=== PATIENT | female | born 1995 | race Caucasian/White ===

== ENCOUNTER 2020-10-24 11:17 | Outpatient (CLI) | payer BC, SELFPAY ==
[2020-10-24 12:17] LABS: SARS-CoV-2 Ag Positive (Negative)
== END 2020-10-24 11:18 | disposition home or self-care (01) ==
LOC: CHSLAB 11:20
PROVIDERS: PCP Family Medicine; Visit Provider Family Medicine
DX: U07.1 COVID-19 (principal)
CPT/HCPCS: 87426

== ENCOUNTER 2021-04-13 11:21 | Outpatient (CLI) | payer BC, MEDICAID, SELFPAY ==
[2021-04-13 11:38] LABS: Hematocrit 40.8 % (35.0-49.0); Hemoglobin 13.7 g/dL (12.0-15.0); Mean Corpuscular HGB Conc 33.6 g/dL (32.0-36.0); Mean Corpuscular Hemoglobin 28.8 pg (27.0-31.0); Mean Corpuscular Volume 85.9 fL (78.0-102.0); Mean Platelet Volume 9.2 fl (9.2-11.8); Platelet Count Result 366 K/mm3 (150-420); Red Blood Count 4.75 M/mm3 (4.20-5.40); Red Cell Distribution Width 13.1 % (11.6-14.4); White Blood Count 9.2 K/mm3 (4.8-10.8)
[2021-04-13 13:10] LABS: Thyroid Stimulating Hormone 1.61 uIU/mL (0.36-3.74)
[2021-04-16 09:58] LABS: FSH 5.7 mIU/mL (***)
== END 2021-04-13 11:22 | disposition home or self-care (01) ==
PROVIDERS: PCP Physician Assistant
DX: N97.9 Female infertility, unspecified (principal)
CPT/HCPCS: 36415; 83001; 83002; 84146; 84443; 85027

== ENCOUNTER 2021-06-20 09:18 | Emergency (ER) | payer BC, MEDICAID, SELFPAY ==
--- NOTE | ~2021-06-20 | XR_ITS ---
EXAMINATION: XR chest 2V DATE: 06/20/2021 10:55 INDICATION: Cough and chest tightness TECHNIQUE: PA and lateral views of the chest were obtained. COMPARISON: Chest radiograph dated 10/05/2019 FINDINGS: The lungs remain clear with no focal airspace opacities, pulmonary edema, pleural effusion or pneumot horax. The cardiomediastinal silhouette is normal. Likely developmental pseudoarthrosis between the a nterolateral right first and second ribs. Visualized bones and soft tissues are otherwise unremarkabl e. IMPRESSION: 1. Clear lungs. No acute cardiopulmonary disease. Reviewed, dictated and finalized at location A.
[2021-06-20 10:18] VITALS: BP 119/81; PULSE 90; RESP 16; TEMP 36.3; O2SAT 100
--- NOTE | 2021-06-20 10:47 | ED.URI ---
HPI - URI/Sore Throat General Chief Complaint: Upper Respiratory Infection Stated Complaint: tightness in chest Source: patient and RN notes reviewed Mode of arrival: ambulatory Limitations: no limitations History of Present Illness HPI Narrative: patient states that she had COVID 8 months ago. she had significant illness for approximately 2 months. She says that she has had cough ever since. For the last month she has been coughing up yellow phlegm. Today she came into the emergency room because she says that she is coughing so hard she Vomited. She denies any other symptoms. She has not been vaccinated for COVID. MD elicited complaint: cough Onset (ago): month(s) (1) Consistency: constant Severity: moderate Description of mucous: yellow Able to tolerate fluids by mouth: Yes Exacerbating factors: nothing Relieving factors: nothing Associated symptoms: vomiting (post tussive) Treatments prior to arrival: none Related Data Home Medications Medication Instructions Recorded Confirmed citalopram 20 mg PO DAILY 09/29/19 06/20/21 methylphenidate HCl 36 mg PO DAILY 09/29/19 06/20/21 Allergies Allergy/AdvReac Type Severity Reaction Status Date / Time No Known Allergies Allergy Verified 09/29/19 11:38 Review of Systems Review of Systems: All systems reviewed & are unremarkable except as noted in HPI and below Constitutional: Constitutional: Denies chills and Denies fever(s) ENT: Denies sore throat Cardiovascular: Cardiovascular: Denies chest pain PMFSH Past Medical History Medical History (Updated 06/20/21 @ 11:59 by Nicanor Kendrick MD) ADHD Bipolar 1 disorder Hypertension Surgical History Surgical History (Updated 06/20/21 @ 10:53 by Nicanor Kendrick MD) deliv NOS-unsp Social History Social History Smoking status: Current every day smoker Exam Const: General: healthy appearing, no acute distress and alert Nutritional Appearance: obese morbidly obese Orientation/consciousness: patient oriented x3 Other: female nurse in room during examination. HENMT: Head: normal to inspection Ears: external ears normal Eyes: Conjunctivae: conjunctivae normal Pupils: Equal, round and reactive pupils present EOM: EOMs intact bilaterally Resp: Effort & Inspection: normal respiratory effort Auscultation: clear to auscultation bilaterally, no rales and no rhonchi Cardio: Rate: regular rate Rhythm: regular rhythm GI: GI Palp: Yes Soft to palpation and No Tenderness to palpation present (GI) Auscultation: normal bowel sounds Back/Spine/Pelvis: Cervical Spine: cervical ROM normal Thoracic/Lumbar Spine: thoraco-lumbar ROM normal Skin: General skin exam: normal color Rashes: no rashes Neuro: General: patient oriented x3, moves all extremities, no meningeal signs and no focal motor deficits Speech: normal speech Gait exam (Neuro): Normal gait present Extrem: General: normal to inspection and no clubbing, cyanosis or edema Psych: Appearance: grossly normal and well kempt Mental Status: mental status grossly normal Affect: normal affect Attitude: cooperative Thought content: Yes Normal thought content present Course Vital Signs Vital signs: Vital Signs Temperature 36.3 C L 06/20/21 10:18 Pulse Rate 90 06/20/21 10:18 Respiratory Rate 16 06/20/21 10:18 Blood Pressure 119/81 06/20/21 10:18 Pulse Oximetry 100 06/20/21 10:18 Temperature 36.3 C L 06/20/21 10:18 Pulse Rate 77 06/20/21 12:30 Respiratory Rate 20 06/20/21 12:30 Blood Pressure 152/104 H 06/20/21 12:30 Pulse Oximetry 100 06/20/21 12:30 MDM - URI/Sore Throat Lab Data Result diagrams: 06/20/21 10:57 06/20/21 10:57 Labs: Lab Results 06/20/21 06/20/21 Range/Units 10:57 10:57 WBC 8.6 (4.8-10.8) K/mm3 RBC 5.09 (4.20-5.40) M/mm3 Hgb 14.4 (12.0-15.0) g/dL Hct 44.4 (35.0-49.0) % MCV 87.
[2021-06-20 11:01] LABS: Basophils Absolute Auto 0.04 K/mm3 (0.00-0.10); Basophils Percent Auto 0.5 % (0.0-1.0); Hematocrit 44.4 % (35.0-49.0); Hemoglobin 14.4 g/dL (12.0-15.0); Immature Granulocyte Absolute 0.03 K/mm3 (0.00-0.00); Immature Granulocyte Percent A 0.4 % (0.0-0.0); Lymphocytes Absolute Auto 3.23 K/mm3 (1.10-4.50); Lymphocytes Percent Auto 37.7 % (18.0-42.0); Mean Corpuscular HGB Conc 32.4 g/dL (32.0-36.0); Mean Corpuscular Hemoglobin 28.3 pg (27.0-31.0); Mean Corpuscular Volume 87.2 fL (78.0-102.0); Mean Platelet Volume 8.9 fl (9.2-11.8); Monocytes Absolute Auto 0.51 K/mm3 (0.10-0.90); Neutrophils Absolute Auto 4.2 K/mm3 (1.7-7.2); Neutrophils Percent Auto 48.4 % (50.0-70.0); Platelet Count Result 422 K/mm3 (150-420); Red Blood Count 5.09 M/mm3 (4.20-5.40); Red Cell Distribution Width 13.3 % (11.6-14.4); White Blood Count 8.6 K/mm3 (4.8-10.8)
[2021-06-20 11:27] LABS: Anion Gap 11 mmol/L (8-16); Blood Urea Nitrogen 12 mg/dL (7-18); CRP 1.6 mg/dL (0.0-0.9); Calcium 8.9 mg/dL (8.5-10.1); Carbon Dioxide 26 mmol/L (21-32); Chloride 106 mmol/L (98-108); Estimated CRCL calculation 132 ml/min; Estimated Glomerular Filt Rate > 60; Glucose 92 mg/dL (70-99); Osmolality Calculated 295 mOsm/kg (285-295); Potassium 4.5 mmol/L (3.5-5.1); Sodium 143 mmol/L (136-145)
[2021-06-20 12:30] VITALS: BP 152/104; PULSE 77; RESP 20; O2SAT 100
== END 2021-06-20 12:10 | disposition home or self-care (01) ==
PROVIDERS: Emergency Provider Emergency Medicine; PCP Physician Assistant
DX: R05 Cough (principal); Z86.16 Personal history of COVID-19
CPT/HCPCS: 36415; 71046; 80048; 85025; 86140; 99282; 99283

== ENCOUNTER 2024-12-24 08:18 | Emergency (ER) | payer OTHER, SELFPAY ==
[2024-12-24 08:21] VITALS: BP 132/87; PULSE 93; RESP 18; TEMP 36.6; O2SAT 96
--- OUTSIDE RECORDS SUMMARY | 2024-12-24 08:27 | XMS_ITS | Clinical Summary ---
Author Organization [facility] Address [address] [place] [address]. [place], [place] [id number] [place] [id number] Care Team Providers Care Build Technician Name Role Phone Lex Boland MD Primary Care Provider [phone] Allergies Active Allergy Reactions Criticality Noted Date Comments Latex Hives,Rash Low 02/19/2018 Medications lamoTRIgine ER 25 MG TABLET SR 24 HR 24 hr tablet Take 25 mg by mouth daily. Active methylphenidate CR 36 MG tablet Take 36 mg by mouth every morning. Active citalopram 20 MG tablet Take 20 mg by mouth daily. Active traMADol 50 MG tabletIndication s:Acute Pain < 3 Day Supply Take 1 tablet (50 mg total) by mouth every 6 (six) hours as needed for Pain. Indications : Acute Pain < 3 Day Supply 10 tablet 01/18/2020 Active Active Problems No known active problems Social History Tobacco Use Types Packs/Day Years Used Date Smoking Tobacco: Every Day Cigarettes Smokeless Tobacco: Current Alcohol Use Standard Drinks/Week Comments Yes 0 (1 standard drink = 0.6 oz pur e alcohol) rarely Comments No Sex and Gender Information Value Date Recorded Sex Assigned at Not on file Legal Sex Female 10:34 PM SPECIAL WARFARE COMBATANT CREWMAN Gender Identity Not on file Sexual Orientation Not on file Last Filed Vital Signs Vital Sign Reading Time Taken Comments Blood Pressure 119/86 11/22/2023 11:23 AM SPECIAL WARFARE COMBATANT CREWMAN Pulse 97 11/22/2023 11:23 AM SPECIAL WARFARE COMBATANT CREWMAN Temperature 36.7 ??C (98 ??F) 11/22/2023 9:32 AM SPECIAL WARFARE COMBATANT CREWMAN Respiratory Rate 22 11/22/2023 11:23 AM SPECIAL WARFARE COMBATANT CREWMAN Oxygen Saturation 95% 11/22/2023 11:23 AM SPECIAL WARFARE COMBATANT CREWMAN Inhaled Oxygen Concentration - - Weight 97.6 kg (215 lb 2.7 oz) 11/22/2023 9:32 A M SPECIAL WARF[employer] COMBATANT CREWMAN Height 152.4 cm (5') 11/22/2023 9:32 AM SPECIAL WARFARE COMBATANT CREWMAN Body Mass Index 42.02 11/22/2023 9:32 AM SPECIAL WARFARE COMBATANT CREWMAN Plan of Treatment Health Maintenance Due Date Last Done Comments Cervical Cancer Screening Pa p Smear (Age 21 to 29) Every 3 Years 1995 Cervical Cancer Screening 1995 Annual Physical 1998 Pneumococcal Vaccine: Pediat rics (0 to 5 Years) and At-Risk Patients (6 to 64 Years) (1 of 2 - PCV) 2001 Hepatitis C 2013 DTaP, Tdap and Td Vaccines ( 1 - Tdap) 2014 Hepatitis B Vaccines (1 of 3 - 19+ 3-dose series) 2014 COVID-19 Vaccine (1 - 2023-2 5 season) 2024 Influenza Adult (#1) 2024 HPV Vaccines Aged Out No longer eligi ble based on patient's age to complete this topic Meningococcal B Vaccine Aged Out No l onger eligible based on patient's age to complete this topic Meningococcal Vaccine Aged Out No rehana janet eligible based on patient's age to complete this topic RSV Immunizations Under 20 Months Aged Out No longer eligible based on patient's age to complete this topic Additional Health Concerns Infection Onset Date Last Indicated MRSA Comment:+ MRSA to left chest bite 11/21/2019 + MRSA abdominal wound 01/17/2020 () 11/25/2019 11/25/2019 Insurance YIN Care Teams Build Technician Relationship Specialty Start Date End Date Lex Boland MD [address] [place] [phone] PCP - General FAMILY PRACTICE 08/06/18
--- OUTSIDE RECORDS SUMMARY | 2024-12-24 08:27 | XMS_ITS | Encounter Summary ---
Author Organization [facility] Address [address] [place] [address]. [place], [place] [id number] [place] [address] Care Team Providers Care Catalyst Plant Supervisor Name Role Phone Lex Boland MD Primary Care Provider [phone] Encounter Details Date Type Department Care Team (Late st Contact Info) Description 02/03/2018 Abstract [facility] CONVERSION [address] [place] [address] , Generic Conversion, Social History Tobacco Use Types Packs/Day Years Used Date Smoking Tobacco: Never Assessed Comments Unknown Sex and Gender Information Value Date Recorded Sex Assigned at Not on file Legal Sex Female 10:34 PM CUSTOM STUDIO COORDINATOR Gender Identity Not on file Sexual Orientation Not on file documented as of this encounter Plan of Treatment Not on file documented as of this encounter Visit Diagnoses Not on filedocumented in this encounter Additional Health Concerns Infection Onset Date Last Indicated Resolved Time MRSA Comment:+ MRSA to left chest bite 11/21/2019 + MRSA abdominal wound 01/17/2020 () 11/25/2019 11/25/2019 documented as of this encounter Care Teams Catalyst Plant Supervisor Relationship Specialty Start Date End Date Lex Boland MD [address] [place] [phone] PCP - General FAMILY PRACTICE 08/06/18 documented as of this encounter
--- NOTE | 2024-12-24 08:29 | ED.URI ---
HPI - URI/Sore Throat General Chief Complaint: Upper Respiratory Infection Stated Complaint: asthma Time Seen by Provider: 12/24/24 08:28 Source: patient Mode of arrival: ambulatory Limitations: no limitations History of Present Illness HPI Narrative: Patient is a 29-year-old female with cough and congestion and asthma flare at this time for the past 2 days. She is having lots of wheezing. No fever. She was sick last week with bronchitis and was on Augmentin and Medrol Dosepak. She proceeded to get better and then got sick again at this time. MD elicited complaint: cough, rhinorrhea and nasal congestion Pertinent past history: asthma Onset (ago): day(s) (2) Consistency: constant Severity: moderate Pain scale (0-10): 2 Description of mucous: clear Able to tolerate fluids by mouth: Yes Exacerbating factors: exertion Relieving factors: rest Context: sick contacts and other ( Recent illness of bronchitis) Associated symptoms: headache, nasal congestion, cough and shortness of breath Treatments prior to arrival: other ( breathing treatments /updrafts) Related Data Home Medications ?Medication ?Instructions ?Recorded ?Confirmed ?Last Taken ?Type citalopram 20 mg tablet 20 mg PO DAILY 09/29/19 06/20/21 1 Day Ago History ~09/28/19 methylphenidate HCl 36 mg 36 mg PO DAILY 09/29/19 06/20/21 1 Day Ago History tablet,extended release 24 hr ~09/28/19 Allergies Allergy/AdvReac Type Severity Reaction Status Date / Time No Known Allergies Allergy Verified 12/24/24 08:25 Review of Systems Review of Systems: All systems reviewed & are unremarkable except as noted in HPI and below Constitutional: Constitutional: Reports no additional constitutional complaints Eyes: Eyes: Reports no additional eye complaints ENT: Reports system reviewed and no additional complaints, except as documented Cardiovascular: Cardiovascular: Reports no additional cardiovascular complaints Respiratory: Respiratory: Reports no additional respiratory complaints Gastrointestinal: Gastrointestinal: Reports no additional gastrointestinal complaints Genitourinary: Genitourinary: Reports no additional female genitourinary complaints Musculoskeletal: Musculoskeletal: Reports no additional musculoskeletal complaints Integumentary/Breasts: Skin/Breast: Reports system reviewed and no additional complaints, except as docu Neurologic: Reports system reviewed and no additional complaints, except as documented Psychiatric: Psychiatric: Reports no additional psychiatric complaints Endocrine: Endocrine: Reports no additional endocrine complaints Hematologic/Lymphatic: Hematologic/Lymphatic: Reports no additional hematologic/lymphatic complaints Allergic/Immunologic: Allergic/Immunologic: Reports no additional allergic/immunologic complaints PMFSH Past Medical History Medical History Bipolar 1 disorder ADHD Hypertension Surgical History Surgical History deliv NOS-unsp Social History Social History Smoking status: Current every day smoker Exam Const: General: healthy appearing Nutritional Appearance: well nourished Orientation/consciousness: patient oriented x3 Limitations: no limitations HENMT: Head: normal to inspection Ears: external ears normal Face/Nose/Sinus: Normal external nose present Eyes: Conjunctivae: conjunctivae normal Pupils: Equal, round and reactive pupils present EOM: EOMs intact bilaterally Neck: Neck: normal visual inspection Chest: Chest palpation & inspection: normal inspection of the chest Resp: Effort & Inspection: normal respiratory effort, not labored, no retractions, not tachypneic and no use of accessory muscles Auscultation: not clear to auscultation bilaterally, no crackles, no rales, rhonchi, wheezes, breath sounds present and diminished lung sounds diffuse Cardio: Rate: regular rate Rhythm: regular rhythm Heart sounds: no murmurs GI: Inspection: non-distended GI Palp: Yes Soft to palpation, No Tenderness to palpation present (GI) and No Guarding due to palpation present (GI) Auscultation: normal bowel sounds : General: Yes bladder normal to palpation Back/Spine/Pelvis: Back: no CVA tenderness Skin: General skin exam: normal color Rashes: no rashes Wounds: no wounds Neuro: General: patient oriented x3 Cranial nerves: Yes Nystagmus not present Speech: normal speech Extrem: General: normal to inspection Psych: Mental Status: mental status grossly normal Affect: normal affect Attitude: cooperative Course Vital Signs Vital signs: Vital Signs Oxygen Delivery Room Air 12/24/24 08:18 Temperature 36.6 C 12/24/24 08:21 Pulse Rate 93 12/24/24 08:21 Respiratory Rate 18 12/24/24 08:21 Blood Pressure 132/87 12/24/24 08:21 Pulse Oximetry 96 12/24/24 08:21 Oxygen Delivery Room Air 12/24/24 08:21 MDM - URI/Sore Throat MDM Narrative Medical decision making narrative: patient is a 29-year-old female with asthma exacerbation type symptoms. We will give her prednisone 60 mg now. She did not he had an updraft treatment per her history and desire. We will swab her for COVID panel. Lab Data Attestation: I reviewed the patient's lab results. Labs: Lab Results 12/24/24 Range/Units 08:30 Influenza A (RT-PCR) Negative (Negative) Influenza B (RT-PCR) Negative (Negative) RSV (RT-PCR) Negative (Negative) SARS-CoV-2 RNA (RT-PCR) Negative (Negative) Discharge Plan Discharge Clinical Impression: Asthma exacerbation Qualifiers: Asthma severity: moderate Asthma persistence: persistent Qualified Code(s): J45.41 - Moderate persistent asthma with (acute) exacerbation Patient Disposition: Home, Self-Care Condition: Stable Instructions: Antibiotic Form, Asthma (ED) Additional Instructions: Please use home nebulizers often/as needed. Patient Language: [place] Prescriptions: New azithromycin 250 mg tablet See Rx Instructions .ROUTE .COMPLEX Qty: 6 0RF Rx Instructions: For 250 mg dose pack: take 500 mg today (day 1), then 250 mg for 4 days (days 2-5) prednisone 20 mg tablet 40 mg PO DAILY 3 Days Qty: 6 0RF No Action citalopram 20 mg tablet 20 mg PO DAILY methylphenidate HCl 36 mg tablet extended release 24hr 36 mg PO DAILY albuterol sulfate 90 mcg/actuation HFA aerosol inhaler 2 puff INHALATION QID PRN (Reason: shortness of breath or wheezing) Qty: 18 0RF Follow-up/Referrals: John,MARQUIS Rojas [Primary Care Provider] - Time of Disposition: 09:29
--- NOTE | 2024-12-24 08:43 | PC.NURSE ---
PT DECLINES NEB [place]
--- NOTE | 2024-12-24 08:47 | PC.NURSE ---
Covid culture sent to lab
[2024-12-24] MEDS: predniSONE 20 MG TABLET 60 MG PO (08:48)
[2024-12-24 09:11] LABS: SARS-CoV-2 RNA PCR Negative (Negative)
[2024-12-24 09:14] LABS: Influenza A QL RT-PCR Negative (Negative); Influenza B QL RT-PCR Negative (Negative); RSV RNA, RT-PCR Negative (Negative)
--- OUTSIDE RECORDS SUMMARY | 2024-12-24 09:15 | XMS_ITS | Clinical Summary ---
Author Organization [facility] Address [address] [place] [address]. [place], [place] [address] [place] [address] Care Team Providers Care Manufacturing Teacher Name Role Phone Lex Boland MD Primary Care Provider [phone] Allergies Active Allergy Reactions Criticality Noted Date [...] on file Legal Sex Female 10:34 PM SAND POLISHER Gender Identity Not on file Sexual Orientation Not on file Last Filed Vital Signs Vital Sign Reading Time Taken Comments Blood Pressure 119/86 11/22/2023 11:23 AM SAND POLISHER Pulse 97 11/22/2023 11:23 AM SAND POLISHER Temperature 36.7 ??C (98 ??F) 11/22/2023 9:32 AM SAND POLISHER Respiratory Rate 22 11/22/2023 11:23 AM SAND POLISHER Oxygen Saturation 95% 11/22/2023 11:23 AM SAND POLISHER Inhaled Oxygen Concentration - - Weight 97.6 kg (215 lb 2.7 oz) 11/22/2023 9:32 A M SAND POLISHER Height 152.4 cm (5') 11/22/2023 9:32 AM SAND POLISHER Body Mass Index 42.02 11/22/2023 9:32 AM SAND POLISHER Plan of Treatment Health Maintenance Due Date [...] () 11/25/2019 11/25/2019 Insurance YIN Care Teams Manufacturing Teacher Relationship Specialty Start Date End Date Lex Boland MD [address] [place] [phone] PCP - General FAMILY PRACTICE 08/06/18
--- OUTSIDE RECORDS SUMMARY | 2024-12-24 09:15 | XMS_ITS | Encounter Summary ---
Author Organization [facility] Address [address] [place] [address]. [place], [place] [address] [place] [address] Care Team Providers Care Senior Mechanical Project Manager Name Role Phone Lex Boland MD Primary Care Provider [phone] Encounter Details Date Type Department Care Team (Late st Contact Info) Description 02/03/2018 Abstract [facility] CONVERSION [address] [place] [address] , Generic Conversion, Social History Tobacco Use Types Packs/Day Years Used Date Smoking Tobacco: Never Assessed Comments Unknown Sex and Gender Information Value Date Recorded Sex Assigned at Not on file Legal Sex Female 10:34 PM CTO Gender Identity Not on file Sexual Orientation [...] documented as of this encounter Care Teams Senior Mechanical Project Manager Relationship Specialty Start Date End Date Lex Boland MD [address] [place] [phone] PCP - General FAMILY PRACTICE 08/06/18 documented as of this encounter
[2024-12-24 09:31] VITALS: BP 124/76; PULSE 114; RESP 16; TEMP 36.9; O2SAT 97
== END 2024-12-24 09:40 | disposition home or self-care (01) ==
LOC: CHSED 08:56
PROVIDERS: Emergency Provider Emergency Medicine; PCP Physician Assistant
DX: J45.41 Moderate persistent asthma with (acute) exacerbation (principal); I10 Essential (primary) hypertension; F17.200 Nicotine dependence, unspecified, uncomplicated; Z20.822 Contact with and (suspected) exposure to COVID-19
CPT/HCPCS: 87637; 99283; J7512

== ENCOUNTER 2025-03-12 09:03 | Outpatient (CLI) | payer OTHER, SELFPAY ==
--- NOTE | ~2025-03-12 | XR_ITS ---
AP and lateral views of the bilateral hips Clinical history: Pain Findings: No acute fracture or dislocation is seen. Osseous alignment is anatomic. Bilateral hip and SI joint spaces are preserved. Soft tissues are unremarkable. Impression: No significant abnormality is seen. Reviewed, dictated and finalized at location . Impression: No significant abnormality is seen.
--- NOTE | ~2025-03-12 | XR_ITS ---
Lumbosacral Spine: AP and lateral views Clinical History: Pain Findings: The normal lordotic curve is maintained. The vertebral bodies and posterior elements are i ntact. The intervertebral disc spaces are preserved. The sacroiliac joints are normally outlined. Impression: No significant abnormality. Reviewed, dictated and finalized at [facility]. Impression: No significant abnormality.
--- OUTSIDE RECORDS SUMMARY | 2025-03-12 09:52 | XMS_ITS | Clinical Summary ---
Author Organization [facility] Address [address] [place] [address] Care Team Providers Care Machine Riveter Name Role Phone Lex Boland MD Primary Care Provider [phone] Allergies Active Allergy Reactions Criticality Noted Date [...] on file Legal Sex Female 10:34 PM NIKE ATHLETE Gender Identity Not on file Sexual Orientation Not on file Last Filed Vital Signs Vital Sign Reading Time Taken Comments Blood Pressure 119/86 11/22/2023 11:23 AM NIKE ATHLETE Pulse 97 11/22/2023 11:23 AM NIKE ATHLETE Temperature 36.7 C (98 F) 11/22/2023 9:32 AM NIKE ATHLETE Respiratory Rate 22 11/22/2023 11:23 AM NIKE ATHLETE Oxygen Saturation 95% 11/22/2023 11:23 AM NIKE ATHLETE Inhaled Oxygen Concentration - - Weight 97.6 kg (215 lb 2.7 oz) 11/22/2023 9:32 A M NIKE ATHLETE Height 152.4 cm (5') 11/22/2023 9:32 AM NIKE ATHLETE Body Mass Index 42.02 11/22/2023 9:32 AM NIKE ATHLETE Plan of Treatment Health Maintenance Due Date Last Done Comments Cervical Cancer Screening Pa p Smear (Age 21 to 29) Every 3 Years 1995 Cervical Cancer Screening 1995 Annual Physical 1998 Hepatitis C 2013 DTaP, Tdap and Td Vaccines ( 1 - Tdap) 2014 Hepatitis B Vaccines (1 of 3 - 19+ 3-dose series) 2014 Pneumococcal Vaccine: Pediat rics (0 to 5 Years) and At-Risk Patients (6 to 49 Years) (1 of 2 - PCV) 2014 COVID-19 Vaccine (2023-2 5 season) 2024 HPV Vaccines Aged Out No longer [...] () 11/25/2019 11/25/2019 Insurance YIN Care Teams Machine Riveter Relationship Specialty Start Date End Date Lex Boland MD [address] [place] [phone] PCP - General FAMILY PRACTICE 08/06/18
== END 2025-03-12 09:04 | disposition home or self-care (01) ==
LOC: CHSIMG 09:07
PROVIDERS: PCP Registered Nurse; Visit Provider Registered Nurse
DX: M54.50 Low back pain, unspecified (principal); M25.552 Pain in left hip; M25.551 Pain in right hip
CPT/HCPCS: 72100; 73521

== ENCOUNTER 2025-03-13 10:50 | Outpatient (RCR) | payer OTHER, SELFPAY ==
--- NOTE | 2025-03-17 15:26 | PCPTNOTE ---
Patient called & cancelled scheduled appointment this date.
--- NOTE | 2025-03-19 09:14 | PCPTNOTE ---
Cancelled session- car broke down.
--- NOTE | 2025-03-25 09:35 | OPREHPOC ---
Outpatient Therapy Plan of Care This is a Multidisciplinary Plan of Care that may contain components documented by all disciplines (PT, OT, and ST.) PT Problem 1 PT Problem #1 Knowledge Deficit PT Goal 1 Goal / Goal Update independent and compliant with HEP Target Visit 6 PT Problem 2 PT Problem #2 Pain
--- NOTE | 2025-03-25 09:41 | OPREHPOC ---
Outpatient Therapy Plan of Care This is a Multidisciplinary Plan of Care that may contain components documented by all disciplines (PT, OT, and ST.) PT Problem 1 PT Problem #1 Knowledge Deficit PT Goal 1 Goal / Goal Update independent and compliant with HEP Target Visit 6 PT Problem 2 PT Problem #2 Pain PT Goal 1 Goal / Goal Update decrease pain at worst to 2/10 or less in the lower back and bilateral hips Target Visit 12 PT Problem 3 PT Problem #3 Impaired Strength PT Goal 1 Goal / Goal Update 4+/5 or better bilateral hip strength 5/5 bilateral knee strength 4-/5 or better core strength Target Visit 12 PT Problem 4 PT Problem #4 Impaired Functional Mobility PT Goal 1 Goal / Goal Update LEFS to display less than 50% functional deficits patient to perform yard care activities without increased pain patient to perform safe squat mechanics with no increased pain or cueing
--- NOTE | 2025-03-25 09:41 | PTOPEVAL1 ---
Assessment and note entered by JT File, PT Evaluation Information Assessment Status Evaluation ICD-10 Condition Codes (PT) Pain in low back M54.50,Pain in right hip M25.551, Pain in left hip M25.552 Onset 03/11/25 Subjective Information patient reports she is having pain in the lower back and both hips. she reports the pain in the hips is in the back and sides, but never the groin area. she reports she has increased pain in the lower back and posterior hips with increased activity. she reports these activities include working in her garden. she reports she just recently was working in the garden tilling and spreading soil with her hands and struggled to walk later that night. she reports she has had pain since 2014, but reports she has had more acute flare ups of pain recently (ie. last weekend working in the garden). she reports she was in 2014 when she first started having her pain. she did have xrays here in [place] that are negative for OA and displays preserved jt spaces. she reports at times she does get NTB in the legs. she reports it is mostly the feet that fall asleep after sitting for too long. Assessment PT Clinical Summary mrs. copeland is a pleasant 29 yo woman who presents to skilled PT services for evaluation and treatment of lower back and bilateral hip pain. he signs and symptoms are consistent with core instability creating lumbar spine and posterior hip pain. she also may have some discoid flare ups from increased activity in a flexed position with poor core stability. continued skilled PT is indicated to improve her objective/functional deficits and progress towards a return to her prior level functional activities with pain. Plan of Care Interventions Electrical Stimulation,Gait Training,Hot Pack/Cold Pack,Manual Therapy,Neuro Re-education, Therapeutic Activities,Therapeutic Exercise PT Services Indicated Yes Treatment Frequency and 3x weekly for 12 visits Duration These treatments will address the objective and functional deficits as defined above. The patient will be advanced safely and appropriately in order for the patient to progress towards his/her prior level of function. Additional exercises will be introduced and as well as a comprehensive home exercise program upon discharge, if needed, ?to ensure carryover of functional gains achieved in the clinic. This treatment plan has been reviewed and agreement upon by the patient.
--- NOTE | 2025-04-09 10:18 | PCPTNOTE ---
Cancelled session. Reports she is at her mom's helping her and will call back to reschedule.
--- NOTE | 2025-07-08 14:51 | PCPTNOTE ---
discharged due to time since last visit
== END 2025-06-11 23:59 | disposition home or self-care (01) ==
LOC: CHSPT 10:50
PROVIDERS: Visit Provider Registered Nurse
DX: M54.50 Low back pain, unspecified (principal); M25.551 Pain in right hip; M25.552 Pain in left hip
CPT/HCPCS: 97014; 97110; 97112; 97161; G0283

== ENCOUNTER 2025-07-25 16:02 | Outpatient (CLI) | payer OTHER, SELFPAY ==
--- OUTSIDE RECORDS SUMMARY | 2025-07-25 16:08 | XMS_ITS | Patient Health Record ---
Author Organization [facility] Address [address] [place] [address] Care Team Providers Care Divine Healer Name Role Phone Sanjay Norris Primary Care Provider [phone] Allergies Allergen (clinical drug ingredient) Drug/Non Drug Allergy documented on EMR Reaction Allergy Type Onset Date Status Latex Gloves hives Drug Allergy Acti ve Reason For Referral No Information Medications Medication SIG (Take, Route, Fr equency, Duration) Notes Start Date End Date Status Concerta Active Fluoxetine Active Verapamil HCl Active Clindamycin HCl Express Care 08/06/2018 Active Social History Tobacco Use: Social History Observation Description Date Details (start date - stop date) Current Smoker NA - NA Tobacco Use/Smoking Question Answer Notes Are you a current smoker How many cigarettes a day do you smoke? 6-10 Problems Problem Type SNOMED Code ICD Code Onset Dates Problem Status W/U Status Risk Notes Problem Dental caries (74053618) Dental caries (K02.9) Active confirmed Plan Of Treatment No Information Insurance Providers Payer Name Payer Address Payer Phone Subscriber Number Group Number Insured Name Patient Relationship to Insured Coverage Start Date Coverage End Date Medicaid FQ Primary Only [address] [place], [place] [id number] Nimco Berry Self - patient is the insured Dental [facility] [address] [place] [address] [id number] Nimco Berry Self - patient is the insured Dental [facility] [address] [place] [address] [id number] Nimco Berry Self - patient is the insured Medical (General) History Medical History History ICD Code hypertension frequent headache/ migraines bipolar disorder Surgical History Surgery Date(Month/Year) 2016
[2025-07-25 16:38] LABS: Strep Group A RT-PCR NOT DETECTED (Negative)
[2025-07-25 16:51] LABS: Influenza A QL RT-PCR Negative (Negative); Influenza B QL RT-PCR Negative (Negative); SARS-CoV-2 RNA PCR Negative (Negative)
== END 2025-07-25 16:03 | disposition home or self-care (01) ==
LOC: CHSLAB 16:05
PROVIDERS: PCP Registered Nurse; Visit Provider Registered Nurse
DX: J02.9 Acute pharyngitis, unspecified (principal)
CPT/HCPCS: 87636; 87651